=== PATIENT | male | born 1970 | race Asian ===

== ENCOUNTER 2020-03-01 07:52 | Emergency (ER) | payer BC ==
[~2020-03-01] VITALS: Ht 167.6 cm; Wt 63.5 kg
--- NOTE | 2020-03-01 08:04 | NUR ---
[email or web address], medical screening exam in progress
[2020-03-01] MEDS ORDERED: ACETAMINOPHEN ES 500 MG TABLET PO ONE (08:15)
[2020-03-01] MEDS ORDERED: ACETAMINOPHEN ES 500 MG TABLET ONE (08:22)
--- NOTE | 2020-03-01 08:50 | NUR ---
Patient is back from CT scan in same condition, for results and disposition.
--- NOTE | 2020-03-01 09:58 | NUR ---
Patient discharged to home in stable condition and staedy gait. Written and verbal after care instructions given to patient and patient's spouse. Patient and family verbalized understanding and compliance of instructions. Stressed follow up with primary doctor, eye doctor and spine doctor or return to ER for worsening s/s.
== END 2020-03-01 10:07 | disposition home or self-care (01) ==
LOC: ER 07:52
DX: S09.90XA Unspecified injury of head, initial encounter (principal); S29.012A Strain of muscle and tendon of back wall of thorax, initial encounter; S16.1XXA Strain of muscle, fascia and tendon at neck level, initial encounter; V18.4XXA Pedal cycle driver injured in noncollision transport accident in traffic accident, initial encounter; Y93.55 Activity, bike riding; Y92.89 Other specified places as the place of occurrence of the external cause; S00.12XA Contusion of left eyelid and periocular area, initial encounter; K02.9 Dental caries, unspecified; Z88.0 Allergy status to penicillin
CPT/HCPCS: 70450; 70486; 72125; A4663; A9150